=== PATIENT | female | born 2000 | race Caucasian/White ===

== ENCOUNTER 2020-10-29 15:00 | Emergency (ER) | payer OTHER ==
[2020-10-29 15:17] VITALS: BP 114/69; PULSE 75; TEMP 99.8; BMI 22.1
[2020-10-29] MEDS ORDERED: METHOCARBAMOL 500 MG TABLET PO ONE (15:25)
[2020-10-29] MEDS ORDERED: ACETAMINOPHEN 500 MG TABLET (FP) PO ONE (15:25)
[2020-10-29] MEDS ORDERED: METHOCARBAMOL 500 MG TABLET ONE (15:28)
[2020-10-29] MEDS ORDERED: ACETAMINOPHEN 500 MG TABLET (FP) ONE (15:28)
[2020-10-29] MEDS ORDERED: LIDOCAINE 5% TOPICAL PATCH TP ONE (15:31)
[2020-10-29] MEDS ORDERED: LIDOCAINE 5% TOPICAL PATCH ONE (15:56)
[2020-10-29 15:58] LABS: HCG,QUALITATIVE URINE Negative
[2020-10-29] MEDS ORDERED: LIDOCAINE PATCH REMOVAL MC SCH (22:00)
== END 2020-10-29 17:06 | disposition home or self-care (01) ==
LOC: FER 15:00
DX: M54.5 Low back pain (principal)
CPT/HCPCS: 81003; 84703; 87086; 99283-25